=== PATIENT | female | born 1970 | race Caucasian/White ===

== ENCOUNTER 2017-06-17 15:03 | Emergency (ER) | payer SELFPAY ==
[2017-06-17 15:10] VITALS: BP 157/87
[2017-06-17] MEDS ORDERED: TRAMADOL HCL 50 MG TABLET PO ONE (15:36)
--- NOTE | 2017-06-17 15:39 | ER Document Report ---
ED Neck/Back Problem - General Chief Complaint: Back Pain Stated Complaint: FALL/BACK PAIN Time Seen by Provider: 06/17/17 15:23 Mode of Arrival: Ambulatory Information source: Patient TRAVEL OUTSIDE OF THE [place] IN LAST 30 DAYS: No - HPI Patient complains to provider of: Pain, Injury, Lower back Onset: Just prior to arrival Where: Home Notes: Patient is here with complaints of low back pain. She states that she tripped over a toy on her porch and fell off the porch landing on her buttocks. This falls approximately 3 feet. She denies striking her head. No loss of consciousness. She is now complaining of pain in the lower back that radiates down the left leg with some mild tingling to the left leg. She denies any weakness in the left leg. Pain is worse with any sort of movement, better when standing still. She denies being on blood thinning medications. She states she takes no medications on a daily basis. She denies any bowel or bladder dysfunction. She denies abdominal pain. She denies dysuria or hematuria. No nausea, vomiting, diarrhea. No chest pain or shortness of breath. She denies any other injuries or complaints at this time. - Related Data Allergies/Adverse Reactions: codeine Allergy (Verified 06/17/17 15:06) ketorolac [From Toradol] Allergy (Verified 06/17/17 15:06) Past Medical History - Social History Smoking Status: Former Smoker Family History: Reviewed & Not Pertinent Patient has suicidal ideation: No Patient has homicidal ideation: No Renal/ Medical History: Denies: Hx Peritoneal Dialysis Review of Systems - Review of Systems -: Yes All other systems reviewed and negative Physical Exam - Vital signs Vitals: Temp Pulse Resp BP Pulse Ox 98.0 F 104 H 12 157/87 H 97 06/17/17 15:09 06/17/17 15:09 06/17/17 15:09 06/17/17 15:09 06/17/17 15:09 - Notes Notes: GENERAL: alert, cooperative, nontoxic, no distress. HEAD: normocephalic, atraumatic EYES: conjunctiva pink without discharge, no external redness or swelling. EARS: no external swelling, no external redness NOSE: atraumatic, no external swelling MOUTH/THROAT: mucous membranes moist and pink, posterior pharynx without erythema, swelling, exudate. No trismus or drooling. NECK: soft, supple, full range of motion, no meningismus. CHEST: no distress, lungs clear and equal throughout. No wheezing, rales, rhonchi. CARDIAC: regular rate and rhythm, no murmur, normal capillary refill, normal pulses. No peripheral edema noted. ABDOMEN: soft, nontender, no pusatile mass. BACK: No CVA tenderness. Tenderness to L5 as well as the sacrum. No crepitus or step-off noted. Limited range of motion secondary to pain. EXTREMITIES: full range of motion of all extremities. No redness, no swelling. NEURO: alert and oriented A&O x 3, no focal deficits, full range of motion of all extremities. 5 out of 5 flexion and extension of the lower extremities bilaterally. Patellar and Achilles deep tendon reflexes are +2 bilaterally. Normal sensation with no saddle anesthesia. Patient can dorsiflex the great toes bilaterally. PYSCH: appropriate mood, affect. Patient is cooperative. SKIN: pink, warm, dry, no rash. Course - Re-evaluation Re-evalutation: 06/17/17 17:20 Patient is nontoxic appearing with stable vitals. The patient is here after complaints of fall. She states that she landed on her buttocks and now has low back pain rating down the left leg. She denies hitting her head. She is on no blood thinning medications. There is no loss of consciousness. She has no sign or risk of cauda equina, epidural abscess/bleed, discitis, AAA, pyelonephritis, osteomyelitis. CT shows no sign of acute fracture or compression fracture. The patient has a benign exam with no focal deficits. Patient is allergic to codeine, Toradol, NSAIDs, Ultram. She does not have diabetes. Due to her extensive allergy list, I will place the patient on steroids and Zanaflex for pain control. She is instructed to take Tylenol as needed for pain as well. She was instructed to stay active but avoid any heavy lifting. Follow-up if not better in 1 week, sooner for worsening pain, high fever, difficulty controlling her bowels or bladder, numbness, tingling, weakness, or for any further concerns. The patient is noted to have elevated blood pressure during today's emergency department visit. The patient was informed of this finding. The patient was instructed that this may be related to pre-hypertension and requires further evaluation with a primary care provider. The patient has no hypertensive symptoms at this time. The patient's emergency department workup and current diagnosis were explained to the patient and or family. Follow-up instructions were provided. Medications if prescribed were discussed. Instructions for when to return to the emergency department including specific worrisome symptoms were discussed with the patient and/or family. - Vital Signs Vital signs: Temp Pulse Resp BP Pulse Ox 98.0 F 104 H 12 157/87 H 97 06/17/17 15:09 06/17/17 15:09 06/17/17 15:06/17/17 15:06/17/17 15:09 - Diagnostic Test Radiology reviewed: Image reviewed, Reports reviewed - CT of the lumbar spine without acute findings. Discharge - Discharge Clinical Impression: Lumbar back pain Condition: Stable Disposition: HOME, SELF-CARE Instructions: Ice Packs ([facility]), Low Back Pain ([facility]), Muscle Strain ([facility]) Additional Instructions: Take medications as prescribed. Avoid heavy lifting. Stay active and stretch. Follow-up with your doctor if not better in 1 week, sooner for increasing pain , fever, numbness, tingling, weakness, difficulty controlling her bowels or bladder, or for any further concerns. Your blood pressure was elevated during today's visit. Have this rechecked with your doctor. Prescriptions: Prednisone [Deltasone 20 mg Tablet] 3 tab PO DAILY 5 Days tablet Tizanidine HCl [Zanaflex 4 Mg Tablet] 4 mg PO BID PRN #10 tablet PRN Reason: Forms: Elevated Blood Pressure, Smoking Cessation Education Referrals: [facility] [Provider Group] - Follow up as needed
--- NOTE | 2017-06-17 17:13 | RADIOLOGY REPORT (SQ) ---
EXAM DESCRIPTION: CT LUMBAR SPINE WITHOUT COMPLETED DATE/TIME: 06/17/2017 4:18 pm REASON FOR STUDY: fall, pain, numbness down left leg COMPARISON: None. TECHNIQUE: Axial images acquired through the lumbar spine without intravenous contrast. Images revi ewed with lung, soft tissue and bone windows. Reconstructed coronal and sagittal MPR images reviewed . All images stored on PACS. All CT scanners at this facility use dose modulation, iterative reconstruction, and/or weight based d osing when appropriate to reduce radiation dose to as low as reasonably achievable (ALARA). [facility]: Dose Right [facility]: CareDose [facility]: Dose Right [facility]: Teradose 4D [facility]: [employer] RADIATION DOSE: mGy. LIMITATIONS: None. FINDINGS: SEGMENTATION: Normal. No transitional anatomy. ALIGNMENT: Normal. VERTEBRAL BODIES: No fractures. No dislocation. No acute findings. DISCS: No significant protrusions. Study limited by lack of intrathecal contrast. PEDICLES, TRANSVERSE PROCESSES: No fractures. No dislocation. No acute findings. FACETS, POSTERIOR ELEMENTS: Mild facet arthropathy is seen at all levels. No fractures. No dislocat ion. No spinal stenosis. HARDWARE: None in the spine. VISUALIZED RIBS: No fractures. SOFT TISSUES: No significant or acute finding in adjacent soft tissues. OTHER: No other significant finding. IMPRESSION: No evidence of acute osseous injury. Background of mild multilevel facet arthropathy. TECHNICAL DOCUMENTATION: JOB ID: [id number] Quality ID # [id number]: Final reports with documentation of one or more dose reduction techniques (e.g., Au tomated exposure control, adjustment of the mA and/or kV according to patient size, use of iterative reconstruction technique) 2010 [employer]- All Rights Reserved Reading location - IP/workstation name: [email or web address]
== END 2017-06-17 17:33 | disposition home or self-care (01) ==
LOC: ER 15:03
DX: M54.5 Low back pain (principal); R03.0 Elevated blood-pressure reading, without diagnosis of hypertension; W17.89XA Other fall from one level to another, initial encounter; Y92.008 Other place in unspecified non-institutional (private) residence as the place of occurrence of the external cause; Z88.6 Allergy status to analgesic agent
CPT/HCPCS: 72131; 99283